=== PATIENT | female | born 1985 | race Caucasian/White ===

== ENCOUNTER 2021-04-03 10:45 | Day surgery (SDC) | payer OTHER, SELFPAY ==
[2021-04-03] VITALS (11 sets, daily range): BP systolic 114–142; BP diastolic 43–85; PULSE 71–120; RESP 16–22; TEMP 36.1–38.4; O2SAT 97–100
--- NOTE | ~2021-04-03 | CT_ITS ---
EXAMINATION: CT abdomen pelvis w con INDICATION: Right lower quadrant pain TECHNIQUE: Computed tomographic images of the abdomen and pelvis were obtained after the administrati on of 100 cc of Omnipaque 350 intravenous contrast. The dose-length product (DLP) was 1427.47 mGy-cm. Automated exposure control and iterative reconstruction technique were employed. COMPARISON: None available FINDINGS: The lung bases are clear. The heart size is normal. The liver, spleen, pancreas, gallbladde r, and adrenal glands are normal. The right kidney is completely atrophic or absent. The left kidney is unremarkable. No pathologically enlarged abdominal or pelvic lymph nodes are identified. There is no free intraperitoneal gas or evidence of bowel obstruction. The dilated appendix measures up to 12 mm. There is edematous stranding of the periappendiceal fat. No perforation or abscess are identified . IMPRESSION: 1. Acute appendicitis, uncomplicated. 2. Complete atrophy or absent right kidney. These findings and recommendations were discussed with Heather Garcia in the Emergency Department at 1446 hours on 04/03/2021. Reviewed, dictated and finalized at location B. IMPRESSION: 1. Acute appendicitis, uncomplicated. 2. Complete atrophy or absent right kidney. These findings and recommendations were discussed with Heather Garcia in the E mergency Department at 1446 hours on 04/03/2021.
[2021-04-03 12:57] LABS: Basophils Percent Auto 0.2 % (0.2-1.2); Eosinophils Percent Auto 0.1 % (0-4.4); Hematocrit 41.1 % (37.0-47.0); Hemoglobin 13.2 g/dL (12.0-15.0); Immature Granulocyte Percent A 0.5 % (0-0.5); Lymphocytes Absolute Auto 1.76 K/mm3 (0.9-3.2); Mean Corpuscular HGB Conc 32.1 g/dl (32-36); Mean Corpuscular Hemoglobin 26.6 pg (26-34); Mean Corpuscular Volume 82.9 fl (80-100); Mean Platelet Volume 9.5 fl (7.4-10.4); Monocytes Absolute Auto 1.1 K/mm3 (0.1-0.6); Monocytes Percent Auto 5.8 % (2.6-8.5); Neutrophils Absolute Auto 16.5 K/mm3 (1.3-6.7); Neutrophils Percent Auto 84.4 % (45.5-73.1); Platelet Count Result 315 k/mm3 (150-375); Red Blood Count 4.96 M/mm3 (4.2-5.4); Red Cell Distribution Width 13.3 % (11.5-14.5); White Blood Count 19.5 K/mm3 (4.5-10.0)
[2021-04-03 13:08] LABS: Add Urine Microscopic? YES; Amorphous Sediment Urine Few; Appearance Urine Cloudy (Clear); Bilirubin Urine Negative (Negative); Blood Urine 1+ (Negative); Color Urine Yellow (Yellow); Glucose Urine UA Negative (Negative); Ketones Urine Trace mg/dL (Negative); Leukocyte Esterase Ur Negative LEU/UL (Negative); Mucus Urine Rare /lpf; Nitrate Urine Negative (Negative); Protein Urine 1+ mg/dL (Negative); Specific Grav Ur 1.024 (1.001-1.035); Squamous Epithelial Cell Urine Many /hpf (Few); Urobilinogen Urine Negative mg/dL (<2.0)
[2021-04-03 13:09] LABS: Alanine Aminotransferase 16 U/L (4-35); Albumin Level 4.5 g/dL (3.5-5.1); Alkaline Phosphatase 83 U/L (38-126); Anion Gap 9 mmol/L (8-16); Aspartate Amino Transferase 19 U/L (14-36); Bilirubin,Total 0.9 mg/dL (0.2-1.3); Blood Urea Nitrogen 12 mg/dL (7-17); Calcium 9.3 mg/dL (8.4-10.2); Carbon Dioxide 25 mmol/L (22-30); Chloride 101 mmol/L (98-107); Estimated CRCL calculation 97 ml/min; Estimated Glomerular Filt Rate > 60; Glucose 118 mg/dL (65-110); Lipase 212 U/L (23-300); Potassium 3.8 mmol/L (3.4-5.0); Sodium 135 mmol/L (137-145)
--- NOTE | 2021-04-03 14:14 | ED.ABDPAIN ---
HPI - Abdominal Pain General Chief Complaint: Abdominal Pain Stated Complaint: RLQ abd pain Time Seen by Provider: 04/03/21 13:59 Source: patient Mode of arrival: ambulatory Limitations: no limitations History of Present Illness HPI narrative: This is a 35-year-old female that presents the emergency department for lower abdominal pain since yesterday. Worse in the right lower quadrant. It is a constant aching pain. Denies fever, nausea, vomiting, diarrhea, dysuria, or hematuria. Related Data Allergies Allergy/AdvReac Type Severity Reaction Status Date / Time No Known Allergies Allergy Verified 04/03/21 13:57 Review of Systems Review of Systems: CONSTITUTIONAL: Denies fever GASTROINTESTINAL: Reports abdominal pain. Denies nausea, vomiting, or diarrhea. GENITOURINARY: Denies dysuria or hematuria. All systems reviewed & are unremarkable except as noted in HPI and below PMFSH Past Medical History Medical History (Updated 04/03/21 @ 22:34 by Heather Garcia PA-C) Kidney congenitally absent, right (Unknown) No active medical problems Family History Family History Father Cerebrovascular accident Social History Social History Smoking status: Never smoker Alcohol intake: current Exam Narrative: GENERAL: Well-appearing, obese, and in no acute distress. HEAD: Normocephalic, atraumatic. EYES: EOMI. CHEST: Clear to auscultation. No respiratory distress. No wheezes rales or rhonchi HEART: Regular rate and rhythm. No murmur heard. Normal peripheral pulses. ABDOMEN: Soft, nondistended, normal active bowel sounds. Tender to palpation in the RLQ, without guarding. No CVA tenderness EXTREMITIES: Normal range of motion. No edema. SKIN: Warm, dry, no rash. NEURO: No focal deficits. Alert and oriented x3. PSYCH: Normal mood and affect Course Consultations Consultation #1: Spoke with Dr. Valadez about patient and workup who will take patient to the OR Date: 04/03/21 Vital Signs Vital signs: Vital Signs Temperature 98.5 F 04/03/21 11:07 Pulse Rate 102 H 04/03/21 11:07 Respiratory Rate 16 04/03/21 11:07 Blood Pressure 142/85 H 04/03/21 11:07 Pulse Oximetry 100 04/03/21 11:07 Temperature 97.0 F L 04/03/21 21:50 Pulse Rate 75 04/03/21 22:15 Respiratory Rate 16 04/03/21 22:15 Blood Pressure 116/69 04/03/21 22:15 Pulse Oximetry 98 04/03/21 21:40 MDM - Abdominal Pain MDM Narrative Medical decision making narrative: Patient presents to the ER for lower abdominal pain since yesterday. She is afebrile and nontoxic appearing. CBC with leukocytosis to 19.5. Metabolic panel without concerning findings. Lipase is normal. UA with 4-6 WBCs. No leuk esterase or nitrates. She denies any urinary symptoms. test is negative. CT scan of the abdomen and pelvis shows acute appendicitis, uncomplicated. Patient was updated on case findings. Spoke with Dr. Valadez about patient and workup who will take patient to the OR Lab Data Attestation: I reviewed the patient's lab results. Result diagrams: 04/03/21 12:47 04/03/21 12:47 Labs: Lab Results 04/03/21 04/03/21 04/03/21 Range/Units 12:47 12:47 12:47 WBC 19.5 H (4.5-10.0) K/mm3 RBC 4.96 (4.2-5.4) M/mm3 Hgb 13.2 (12.0-15.0) g/dL Hct 41.1 (37.0-47.0) % MCV 82.9 (80-100) fl MCH 26.6 (26-34) pg MCHC 32.1 (32-36) g/dl RDW 13.3 (11.5-14.5) % Plt Count 315 (150-375) k/mm3 MPV 9.5 (7.4-10.4) fl Immature Gran % (Auto) 0.5 (0-0.5) % Neut % (Auto) 84.4 H (45.5-73.1) % Lymph % (Auto) 9.0 L (18.3-44.2) % [place] % (Auto) 5.8 (2.6-8.5) % Eos % (Auto) 0.1 (0-4.4) % Baso % (Auto) 0.2 (0.2-1.2) % Lymph # (Auto) 1.76 (0.9-3.2) K/mm3 [place] # (Auto) 1.1 H (0.1-0.6) K/mm3 Eos # (Auto) 0.0 (0-0.3) K/mm3 Baso # (Auto) 0.0
--- NOTE | 2021-04-03 16:22 | WPDANESEPPF ---
Anes - Initial Pre Proc Eval Procedure: Operation Date: 04/03/21 17:30 Proposed Procedures p Laparoscopic Appendectomy - Jose Luis Valadez MD Date/Time: 04/03/21 16:22 Surgeon: Jose Luis Valadez MD Pre Op Diagnosis: RLQ abd pain Patient Data Age: 35 Gender: F Height: 1.63 m Weight: 98.4 kg Last Vital Signs Temp 36.9 C 04/03/21 11:07 Pulse 98 04/03/21 16:15 Resp 18 04/03/21 16:15 BP 138/79 04/03/21 16:15 Pulse Ox 100 04/03/21 16:15 Allergies Allergy/AdvReac Type Severity Reaction Status Date / Time No Known Allergies Allergy Verified 04/03/21 13:57 Home Medications Medication Instructions Recorded Confirmed Type No Home Medications 04/03/21 04/03/21 History Laboratory Tests 04/03/21 04/03/21 04/03/21 12:47 12:47 12:47 WBC 19.5 K/mm3 H K/mm3 (4.5-10.0) RBC 4.96 M/mm3 M/mm3 (4.2-5.4) Hgb 13.2 g/dL g/dL (12.0-15.0) Hct 41.1 % % (37.0-47.0) MCV 82.9 fl fl (80-100) MCH 26.6 pg pg (26-34) MCHC 32.1 g/dl g/dl (32-36) RDW 13.3 % % (11.5-14.5) Plt Count 315 k/mm3 k/mm3 (150-375) MPV 9.5 fl fl (7.4-10.4) Immature Gran % (Auto) 0.5 % % (0-0.5) Neut % (Auto) 84.4 % H % (45.5-73.1) Lymph % (Auto) 9.0 % L % (18.3-44.2) [place] % (Auto) 5.8 % % (2.6-8.5) Eos % (Auto) 0.1 % % (0-4.4) Baso % (Auto) 0.2 % % (0.2-1.2) Lymph # (Auto) 1.76 K/mm3 K/mm3 (0.9-3.2) [place] # (Auto) 1.1 K/mm3 H K/mm3 (0.1-0.6) Eos # (Auto) 0.0 K/mm3 K/mm3 (0-0.3) Baso # (Auto) 0.0 K/mm3 K/mm3 (0.0-0.1) Abs Immat Gran (auto) 0.10 K/mm3 H K/mm3 (0.00-0.031) Absolute Neuts (auto) 16.5 K/mm3 H K/mm3 (1.3-6.7) Absolute Nucleated RBC 0.0 K/mm3 K/mm3 (0.0-0.012) Nucleated RBC % 0.0 % % (0.0-0.2) Sodium 135 mmol/L L mmol/L (137-145) Potassium 3.8 mmol/L mmol/L (3.4-5.0) Chloride 101 mmol/L mmol/L (98-107) Carbon Dioxide 25 mmol/L mmol/L (22-30) Anion Gap 9 mmol/L mmol/L (8-16) BUN 12 mg/dL mg/dL (7-17) Creatinine 0.80 mg/dL mg/dL (0.7-1.0) Estim Creat Clear Calc 97 ml/min ml/min Estimated GFR > 60 (59 - ) Glucose 118 mg/dL H mg/dL (65-110) Calcium 9.3 mg/dL mg/dL (8.4-10.2) Total Bilirubin 0.9 mg/dL mg/dL (0.2-1.3) AST 19 U/L U/L (14-36) ALT 16 U/L U/L (4-35) Alkaline Phosphatase 83 U/L U/L (38-126) Total Protein 8.0 g/dL g/dL (6.3-8.2) Albumin 4.5 g/dL g/dL (3.5-5.1) Lipase 212 U/L U/L (23-300) Urine Color Yellow (Yellow) Urine Appearance Cloudy H (Clear) Urine pH 5.0 (5.0-9.0) Ur Specific [place] 1.024 (1.001-1.035) Urine Protein 1+ mg/dL H mg/dL (Negative) Urine Glucose (UA) Negative mg/dL mg/dL (Negative) Urine Ketones Trace mg/dL mg/dL (Negative) Ur Blood (Man) 1+ H (Negative) Urine Nitrate Negative (Negative) Urine Bilirubin Negative (Negative) Urine Urobilinogen Negative mg/dL mg/dL (<2.0) Leukocyte Esterase Rfl Negative RENNY/UL RENNY/UL (Negative) Urine RBC 6-10 /hpf H /hpf (0-2) Urine WBC 4-6 /hpf H /hpf Ur Squamous Epith Cells Many /hpf H /hpf (Few) Amorphous Sediment Few H (None) Urine Mucus Rare /lpf /lpf Patient hx anesthesia problems: none Family hx anesthesia problems: none [facility] Past Medical History Medical History (Updated 04/03/21 @ 14:15 by Heather Garcia PA-C) No active medical problems Family History Family History (Updated 03/02/18 @ 08:57 by DOCTOR UNKNOWN) Father Cerebrovascular accident
[2021-04-03] MEDS: LACTATED RINGERS 1,000 ML 30 ML IV CONT ×2 (16:40→20:57)
[2021-04-03] MEDS: SCOPOLAMINE 1.5 MG PATCH TRANSDERM (19:03)
--- NOTE | 2021-04-03 19:25 | PM.IMHP ---
H&P: HPI History of Present Illness Date/Time: 04/03/21 19:25 This is a 35-year-old White female that presented to the emergency department for lower abdominal pain since yesterday at 19:30. Now it is worse in the right lower quadrant. It is a constant aching pain. Denies fever, nausea, vomiting, diarrhea, dysuria, or hematuria. CT scan the abdomen pelvis revealed a 12 mm dilated appendix in the right lower quadrant with surrounding stranding most consistent with acute uncomplicated appendicitis. There was absence of the right kidney but the patient has never had any problems previously. She has not had previous abdominal surgery. Chief Complaint: Abdominal pain Review of Systems Constitutional: Constitutional: Reports as per HPI and Denies headache(s) Eyes: Eyes: Denies loss of vision and Denies eye pain ENT: Reports Normal hearing present, Denies change in voice, Denies dizziness and Denies headache(s) Cardiovascular: Cardiovascular: Denies chest pain and Denies dyspnea Respiratory: Respiratory: Denies dyspnea and Denies wheezing Gastrointestinal: Gastrointestinal: Reports abdominal pain Musculoskeletal: Musculoskeletal: Denies back pain and Denies arthralgias Neurologic: Reports Normal hearing present, Denies dizziness, Denies headache(s), Denies loss of vision and Denies memory loss Psychiatric: Psychiatric: Denies memory loss and Denies panic attacks Endocrine: Endocrine: Reports no additional endocrine complaints Hematologic/Lymphatic: Hematologic/Lymphatic: Reports no additional hematologic/lymphatic complaints Allergic/Immunologic: Allergic/Immunologic: Denies wheezing PMFSH Past Medical History Medical History (Updated 04/03/21 @ 21:01 by Jose Luis Valadez MD) Kidney congenitally absent, right (Unknown) No active medical problems Family History Family History Father Cerebrovascular accident Social History Social History Smoking status: Never smoker Alcohol intake: current Meds Home Medications and Allergies Home Medications Medication Instructions Recorded Confirmed Type hydrocodone-acetaminophen 1 tablet PO Q6H PRN #14 tablet 04/03/21 Rx Allergies Allergy/AdvReac Type Severity Reaction Status Date / Time No Known Allergies Allergy Verified 04/03/21 13:57 Vital Signs Vital Signs - 24 hr 04/03/21 11:07 04/03/21 14:04 04/03/21 15:06 Temperature 36.9 C Pulse Rate 102 H 100 91 Respiratory Rate 16 18 20 Blood Pressure 142/85 H 130/60 130/82 Pulse Oximetry 100 100 100 04/03/21 16:15 04/03/21 17:40 Temperature 38.4 C H 37.9 C H Pulse Rate 120 H Respiratory Rate 16 Blood Pressure 131/72 Pulse Oximetry 97 Exam Const: General: cooperative, no acute distress, well developed, alert and awake Nutritional Appearance: well nourished Orientation/consciousness: patient oriented x3 Limitations: no limitations HENMT: Head: normal to inspection, normocephalic and atraumatic Ears: hearing grossly normal bilaterally General nose exam: Normal external nose present Face and sinus: normal facial exam Mouth: Yes Normal oral and palatal mucosa present, Yes tongue normal and Yes moist mucous membranes Eyes: General: appearance normal, both eyes and all related structures Pupils: Equal, round and reactive pupils present EOM: EOMs intact bilaterally Neck: Neck: normal visual inspection, no lymphadenopathy, trachea midline and supple Lymphatic: no lymphadenopathy noted Chest: Chest palpation & inspection: normal inspection of the chest Resp: Effort & Inspection: normal respiratory effort and able to speak in complete sentences Auscultation: clear to auscultation bilaterally Cardio: Jugular venous distension: no JVD Rate: regular rate Rhythm: regular rhythm GI: Inspection: normal to inspection, distended, obesity and no scars GI Palp: Yes abdomi
[2021-04-03] MEDS: BUPIVACAINE/EPINEPHRINE 0.5% 30 ML VIAL INFILTRATE (20:29)
--- NOTE | 2021-04-03 21:05 | W.PM.PROC2 ---
Procedure Note - Detailed Date of Procedure 04/03/21 Pre-op Diagnosis Acute uncomplicated appendicitis RLQ abd pain Post-op Diagnosis same Procedure Performed laparoscopic appendectomy Surgeon Jose Luis Valadez MD Field Director Olivia MAURER. OR [employer] Anesthesia general Indications Classic lower abdominal pain with loss of appetite and CT findings consistent with acute uncomplicated appendicitis Findings Acutely inflamed but not perforated appendix in the right lower quadrant with omentum wrapped around it. Description of Procedure The patient was seen in the Holding Room. I had previously talked emboli healed in [place] in the ER and she had obtained consent for the patient but I also did this. See H&P. Due to COVID patient did not have any family with her. I explained the risks as noted below. The risks, benefits, complications, treatment options, and expected outcomes were discussed with the patient and/or family. The possibilities of reaction to medication, pulmonary aspiration, perforation of viscus, bleeding, recurrent infection, finding a normal appendix, the need for additional procedures, failure to diagnose a condition, and creating a complication requiring transfusion or operation were discussed. There was concurrence with the proposed plan and informed consent was obtained. The site of surgery was properly noted/marked. The patient was taken to Operating Room, and a time out was preformed which identified this as the proper patient, and the procedure verified as laparoscopic appendectomy, possible open. The patient was placed in the supine position and general anesthesia was induced, along with placement of orogastric tube, SCD hose, and a Hunt catheter. The abdomen was prepped and draped in a sterile fashion. A 5 mm umbilical incision was made and the peritoneal cavity was accessed using the Veress needle technique. Once the abdomen was insufflated to 14 mmHg pressure a 5 mm XL trocar over the 0? 5 mm scope was carefully twisted into the abdomen via the umbilicus. The pneumoperitoneum was then established to steady pressure of 14 mm Hg. A 12 mm laparoscopic port was placed through a transverse suprapubic incision. An additional 5 mm cannula was then placed in the left lower quadrant of the abdomen at a level half way between the umbilicus and pubic symphysis under direct vision. A careful evaluation of the entire abdomen was carried out. The patient was placed in Trendelenburg and left lateral decubitus position. The small intestines were retracted in the cephalad and left lateral direction away from the pelvis and right lower quadrant. The patient was found to have an enlarged and inflamed appendix that was extending into the right side of the lower abdomen just above the pelvic brim and the omentum was completely wrapped around it. There was no evidence of perforation. The appendix was carefully dissected. Once it was free a 45 mm ethicon endogastroentestinal stapler with a vascular load was placed across the mesoappendix. This was fired and hemostasis was checked along the staple line and appeared to be adequate. For this patient, this divided the entire mesoappendix and we were able to proceed immediately to stapling off the appendix at it's junction with the cecum. The appendix was then divided at its base using the same 45 mm stapler with a 3.5 mm bowel wall load. Minimal appendiceal stump was left in place. There was no evidence of bleeding, leakage, or complication after division of the appendix at its junction with the cecum. The appendix was then placed in an endobag which had been brought through the 12 mm suprapubic port site. The appendix and the bag were then extracted through this larger port site in the suprapubic position.There was some cloudy yellow fluid in the pelvis so an unfolded 4 x 4 was placed in the pelvis twice and the 2nd time it only became half saturated. Two others were placed in the area of the appendix an
== END 2021-04-03 22:35 | disposition home or self-care (01) ==
LOC: ANHED 15:58 → ANHSURGERY 16:01
PROVIDERS: Emergency Medicine; Emergency Provider Emergency Medicine; PCP Physician Assistant; Visit Provider Surgery
PROC: 0DTJ4ZZ Resection of Appendix, Percutaneous Endoscopic Approach (ICD-10-PCS; CPT 44970; principal; 2021-04-03 17:30)
DX: K35.30 Acute appendicitis with localized peritonitis, without perforation or gangrene (principal); Q60.0 Renal agenesis, unilateral; E66.9 Obesity, unspecified; Z68.37 Body mass index [BMI] 37.0-37.9, adult
CPT/HCPCS: 44970; 36415; 74177; 80053; 81001; 81025; 83690; 85025; 88304; 96365; 99285; A9270; J0131; J1100; J1170; J2250; J2405; J2543; J2704; J2710; J3010; J7030; J7120; Q9967